=== PATIENT | male | born 2000 | race Two or more races ===

== ENCOUNTER 2022-12-07 03:22 | Emergency (ER) | payer SELFPAY ==
[2022-12-07] MEDS ORDERED: FLUORESCEIN SODIUM 1 MG/WRAP ONE (03:48)
[2022-12-07] MEDS ORDERED: TETRACAINE HCL 0.5% 4ML OPTH ONE (03:48)
--- NOTE | 2022-12-07 04:02 | EDPHYS ---
Physician Documentation [facility] Name: Andrae Deras Age: 21 yrs Sex: Male : 2000 Arrival Date: 12/07/2022 Time: 03:27 Bed 8 Private MD: ED Physician Romario Cabrera HPI: 12/07 04:01 This 21 yrs old Male presents to ER via Ambulatory with complaints of Eye Problem. ms3 04:01 21-year-old male with no past medical history presents for left eye pain that began at ms3 2 PM yesterday. Patient states his discomfort is a 6/10 and described as a dry feeling. Patient endorses wearing contacts. Patient denies inciting factors. Patient denies alleviating factors.. Historical: - Allergies: 03:46 No Known Allergies; vc1 - Home Meds: 03:46 None [Active]; vc1 - PMHx: 03:46 None; vc1 - PSHx: 03:46 None; vc1 - Immunization history:: Adult Immunizations up to date, Client reports receiving the 2nd dose of the Covid vaccine. - Social history:: Smoking status: Patient denies any tobacco usage or history of. ROS: 04:01 Constitutional: Negative for fever, and chills. ms3 04:01 Cardiovascular: Negative for chest pain, and palpitations. Respiratory: Negative for shortness of breath, cough, wheezing, and pleuritic chest pain, Abdomen/GI: Negative for abdominal pain, nausea, vomiting, diarrhea, and constipation, Skin: Negative for injury, rash, and discoloration. 04:01 Eyes: Positive for blurry vision, pain, redness. 04:01 All other systems are negative. Exam: 04:01 Constitutional: This is a well developed, well nourished patient who is awake, alert, ms3 and in no acute distress. Head/Face: Normocephalic, atraumatic. Neck: Trachea midline, no cervical lymphadenopathy. Supple, full range of motion without nuchal rigidity, or vertebral point tenderness. No Meningismus. Chest/axilla: Normal chest wall appearance and motion. Nontender with no deformity. Cardiovascular: Regular rate and rhythm with a normal S1 and S2. No gallops, murmurs, or rubs. Normal PMI, no JVD. No pulse deficits. Respiratory: Lungs have equal breath sounds bilaterally, clear to auscultation and percussion. No rales, rhonchi or wheezes noted. No increased work of breathing, no retractions or nasal flaring. Abdomen/GI: Soft, non-tender, with normal bowel sounds. No distension or tympany. No guarding or rebound. No evidence of tenderness throughout. Skin: Warm, dry with normal turgor. Normal color with no rashes, no lesions, and no evidence of cellulitis. 04:01 Eyes: Periorbital structures: appear normal, Pupils: no acute changes, normal size, normal reaction to light, Extraocular movements: intact throughout, Conjunctiva: injected, in the left eye, Corneas: a fluorescein strip employed to appreciate the findings, Left eye reveals corneal ulceration in the central portion of the cornea., Lids and lashes: appear normal. 04:01 Cardiovascular: Rate: 05:01 Visual Acuity: I have reviewed the nursing documentation. ms3 Vital Signs: 03:44 BP 148 / 101; Pulse 76; Resp 17; Pulse Ox 100% ; Weight 70.31 kg; Height 5 ft. 9 in. vc1 (175.26 cm); Pain 6/10; 03:44 Body Mass Index 22.89 (70.31 kg, 175.26 cm) vc1 Visual Acuity: 04:15 Left Eye Visual acuity 20/40, Pupil size 2 mm, Normal, React To Light, Reactive To jb4 Accomodation; Right Eye Visual acuity 20/20, Pupil size 4 mm, Normal, React To Light, Reactive To Accomodation; Both Eyes Visual acuity 20/20; With Lenses; MDM: 04:00 Patient medically screened. ms3 04:01 Differential diagnosis: Corneal abrasion of left eye. Corneal ulcer of left eye. ms3 Foreign body in left eye. Data reviewed: vital signs, nurses notes, and as a result, I will discharge patient. I considered the following discharge prescriptions or medication management in the emergency department Medications were administered in the Emergency Department. See MAR. Counseling: I had a detailed discussion with the patient and/or guardian regarding: the historical points, exam findings, and any diagnostic results supporting the discharge/admit diagnosis, the presence of at least one elevated blood pressure reading (>120/80) during this emergency department visit, the need for outpatient follow up, to return to the emergency department if symptoms worsen or persist or if there are any questions or concerns that arise at home. ED course: Discussed physical exam findings with patient. Patient to follow-up with Dr. Murray in 2 to 3 days. Patient understands and agrees with plan. All questions were answered. Return precautions discussed include worsening symptoms, decreased vision, photophobia, or any other concerns.. 12/07 04:02 Order name: Fluoresene Opth strip; Complete Time: 04:03 ll3 Administered Medications: 04:03 Drug: Tetracaine Drops 0.5 % 1 drops Route: Ophthalmic; Site: left eye; ll3 04:29 Follow up: Response: No adverse reaction ll3 04:12 CANCELLED (Other Intervention Used): Vigamox (moxifloxacin) Drops 0.5 % 2 drops vc1 Ophthalmic once 04:29 Drug: ERYTHromycin Ointment 1 application Route: Ophthalmic; Site: left eye; ll3 04:29 Follow up: Response: Medication administered at discharge. ll3 Disposition Summary: 12/07/22 04:01 Discharge Ordered Location: Home ms3 Condition: Stable ms3 Diagnosis - Unspecified corneal ulcer, left eye ms3 - Ocular pain, left eye ms3 Followup: ms3 - With: Zaid Murray MD - When: 1 - 2 days - Reason: Recheck today's complaints Discharge Instructions: - Discharge Summary Sheet ms3 - Corneal Ulcer ms3 Forms: - Medication Reconciliation Form ms3 - Thank You Letter ms3 - Antibiotic Education ms3 - Prescription Opioid Use ms3 Prescriptions: - Vigamox 0.5 % Ophthalmic Drops - instill 1 drop by OPHTHALMIC route every 8 hours for 7 days; 5 milliliter; ms3 Refills: 0, Product Selection Permitted Signatures: Romario Cabrera DO DO ms3 Yasmin Rodriguez RN RN ll3 Katty Kemp RN RN vc1 Corrections: (The following items were deleted from the chart) 04:12 04:00 Vigamox (moxifloxacin) Drops 0.5 % 2 drops Ophthalmic once ordered. ms3 vc1 05:00 04:01 Eyes: Periorbital structures: appear normal, Pupils: no acute changes, normal ms3 size, normal reaction to light, ms3
--- NOTE | 2022-12-07 04:02 | ER ---
Nurse's Notes [facility] Name: Andrae Deras Age: 21 yrs Sex: Male : 2000 Arrival Date: 12/07/2022 Time: 03:27 Bed 8 Private MD: Diagnosis: Unspecified corneal ulcer, left eye;Ocular pain, left eye Presentation: 12/07 03:44 Chief complaint: Patient states: "Last night my eye started to turn red and now I am vc1 having a jabbing pain in it that is giving me a headache.". Coronavirus screen: Vaccine status: Patient reports receiving the 2nd dose of the covid vaccine. plus 1 booster; Moderna. Ebola Screen: Patient negative for fever greater than or equal to 101.5 degrees Fahrenheit, and additional compatible Ebola Virus Disease symptoms Patient denies exposure to infectious person. Patient denies travel to an Ebola-affected area in the 21 days before illness onset. No symptoms or risks identified at this time. Initial Sepsis Screen: Does the patient meet any 2 criteria? No. Patient's initial sepsis screen is negative. Does the patient have a suspected source of infection? No. Patient's initial sepsis screen is negative. Risk Assessment: Do you want to hurt yourself or someone else? Patient reports no desire to harm self or others. Onset of symptoms was December 06, 2022 at 17:00. 03:44 Method Of Arrival: Ambulatory vc1 03:44 Acuity: TORRES 4 vc1 Triage Assessment: 03:47 General: Appears in no apparent distress. uncomfortable, Behavior is calm, cooperative, vc1 appropriate for age. Pain: Complains of pain in left eye Pain does not radiate. Pain currently is 6 out of 10 on a pain scale. at worst was 9.5 out of 10 on a pain scale. Quality of pain is described as jabbing. EENT: Eyes Sclera/Cornea are reddened in outer aspect of conjuctiva of left eye, iris of left eye and inner aspect of conjunctiva of left eye Reports pain in left eye photophobia. Neuro: Level of Consciousness is awake, alert, obeys commands, Oriented to person, place, time, situation, Appropriate for age. Cardiovascular: No deficits noted. Respiratory: Airway is patent Respiratory effort is even, unlabored, Respiratory pattern is regular, symmetrical. GI: No deficits noted. No signs and/or symptoms were reported involving the gastrointestinal system. : No deficits noted. No signs and/or symptoms were reported regarding the genitourinary system. Derm: No deficits noted. No signs and/or symptoms reported regarding the dermatologic system. Musculoskeletal: No deficits noted. No signs and/or symptoms reported regarding the musculoskeletal system. Historical: - Allergies: 03:46 No Known Allergies; vc1 - Home Meds: 03:46 None [Active]; vc1 - PMHx: 03:46 None; vc1 - PSHx: 03:46 None; vc1 - Immunization history:: Adult Immunizations up to date, Client reports receiving the 2nd dose of the Covid vaccine. - Social history:: Smoking status: Patient denies any tobacco usage or history of. Screenin:49 [facility] ED Fall Risk Assessment (Adult) History of falling in the last 3 months, vc1 including since admission No falls in past 3 months (0 pts) Confusion or Disorientation No (0 pts) Intoxicated or Sedated No (0 pts) Impaired Gait No (0 pts) Mobility Assist Device Used No (0 pt) Altered Elimination No (0 pt). Abuse screen: Denies threats or abuse. Nutritional screening: No deficits noted. Tuberculosis screening: No symptoms or risk factors identified. Vital Signs: 03:44 BP 148 / 101; Pulse 76; Resp 17; Pulse Ox 100% ; Weight 70.31 kg; Height 5 ft. 9 in. vc1 (175.26 cm); Pain 6/10; 03:44 Body Mass Index 22.89 (70.31 kg, 175.26 cm) vc1 Visual Acuity: 04:15 Left Eye Visual acuity 20/40, Pupil size 2 mm, Normal, React To Light, Reactive To jb4 Accomodation; Right Eye Visual acuity 20/20, Pupil size 4 mm, Normal, React To Light, Reactive To Accomodation; Both Eyes Visual acuity 20/20; With Lenses; ED Course: 03:27 Patient arrived in ED. ja2 03:28 Romario Cabrera DO is Attending Physician. ms3 03:44 Katty Kemp, RN is Primary Nurse. vc1 03:46 Triage completed. vc1 03:49 Arm band placed on left wrist. vc1 03:49 Patient has correct armband on for positive identification. Bed in low position. Call vc1 light in reach. Pulse ox on. NIBP on. 04:00 Zaid Murray MD is Referral Physician. ms3 04:30 No provider procedures requiring assistance completed. Patient did not have IV access ll3 during this emergency room visit. Administered Medications: 04:03 Drug: Tetracaine Drops 0.5 % 1 drops Route: Ophthalmic; Site: left eye; ll3 04:29 Follow up: Response: No adverse reaction ll3 04:12 CANCELLED (Other Intervention Used): Vigamox (moxifloxacin) Drops 0.5 % 2 drops vc1 Ophthalmic once 04:29 Drug: ERYTHromycin Ointment 1 application Route: Ophthalmic; Site: left eye; ll3 04:29 Follow up: Response: Medication administered at discharge. ll3 Medication: 03:49 VIS not applicable for this client. vc1 Outcome: 04:01 Discharge ordered by . ms3 04:30 Discharged to home ambulatory, with significant other. ll3 04:30 Condition: stable 04:30 Discharge instructions given to patient, significant other, Instructed on discharge instructions, follow up and referral plans. medication usage, Demonstrated understanding of instructions, follow-up care, medications, Prescriptions given X 1. 04:30 Patient left the ED. ll3 Signatures: Garrett Cintron, RN RN jb4 Romario Cabrera DO DO ms3 Marilin Abrams Lynsea, RN RN ll3 Katty Kemp RN RN vc1
[2022-12-07] MEDS ORDERED: ERYTHROMYCIN 1 APPL/1 GM TUBE ONE (04:26)
[2022-12-07 04:50] VITALS: BP 148/101; O2SAT 100
== END 2022-12-07 04:30 | disposition home or self-care (01) ==
LOC: ER 03:22
DX: H16.002 Unspecified corneal ulcer, left eye (principal)
CPT/HCPCS: 99283